=== PATIENT | female | born 1960 | race Caucasian/White ===

== ENCOUNTER 2021-06-21 12:04 | Outpatient (REF) | payer MEDICARE, SELFPAY ==
--- NOTE | ~2021-06-21 | MM_ITS ---
EXAMINATION: MM SCREENING DIGITAL BREAST TOMOSYNTHESIS, BILATERAL CLINICAL INFORMATION: Screening. Asymptomatic. The lifetime risk of breast cancer based on the Tyrer-Cuzick Model is 6%. COMPARISON: Mammography: 04/13/2020, 04/08/2019, 03/13/2018 TECHNIQUE: Digital breast tomosynthesis is performed in both the craniocaudal and mediolateral oblique views along with computer-aided detection (CAD). Synthesized 2D images are generated from the tomosynthesis. FINDINGS: There are scattered areas of fibroglandular density (ACR BI-RADS breast composition Category b). There are no significant masses, abnormal calcifications, or other abnormalities. Parenchymal pattern is similar to prior studies. The left breast is again larger with global asymmetry upper outer quadrant as before. Neither breast shows developing density or interval mass or architectural abnormality. No significant changes. MM/MM tomosynthesis screening BI IMPRESSION: No significant changes from prior studies. ASSESSMENT: BI-RADS 2: Benign RECOMMENDATION: Routine annual mammography screening. This patient's information was entered into a reminder system with a target due date for their next mammogram.
== END 2021-06-21 12:05 | disposition home or self-care (01) ==
LOC: HO.MAMMO 12:04
PROVIDERS: PCP Internal Medicine Medical Oncology; Visit Provider Obstetrics & Gynecology
DX: Z12.31 Encounter for screening mammogram for malignant neoplasm of breast (principal)
CPT/HCPCS: 77063; 77067

== ENCOUNTER 2022-06-24 12:41 | Outpatient (REF) | payer MEDICARE, SELFPAY ==
--- NOTE | ~2022-06-24 | MM_ITS ---
EXAMINATION: MM SCREENING DIGITAL BREAST TOMOSYNTHESIS, BILATERAL CLINICAL INFORMATION: Screening. Asymptomatic. COMPARISON: Mammography: 06/21/2021, 04/13/2020, 04/08/2019, 03/13/2018 TECHNIQUE: Digital breast tomosynthesis is performed in both the craniocaudal and mediolateral oblique views along with computer-aided detection (CAD). Synthesized 2D images are generated from the tomosynthesis. FINDINGS: There are scattered areas of fibroglandular density (ACR BI-RADS breast composition Category b). Parenchymal pattern is similar to prior exams. There is mild asymmetry of the breasts, left slightly larger with regional parenchymal asymmetry upper outer quadrant. There is no developing density or interval mass or architectural abnormality in either breast. There are scattered benign round calcifications. The axilla and skin contours are unremarkable. MM/MM tomosynthesis screening BI IMPRESSION: No mammographic evidence of malignancy. ASSESSMENT: BI-RADS 2: Benign RECOMMENDATION: Routine annual mammography screening. This patient's information was entered into a reminder system with a target due date for their next mammogram.
== END 2022-06-24 12:42 | disposition home or self-care (01) ==
LOC: HO.MAMMO 12:41
PROVIDERS: PCP Internal Medicine; Visit Provider Internal Medicine
DX: Z12.31 Encounter for screening mammogram for malignant neoplasm of breast (principal)
CPT/HCPCS: 77063; 77067

== ENCOUNTER 2022-12-29 07:54 | Outpatient (REF) | payer MEDICARE, SELFPAY ==
--- NOTE | ~2022-12-29 | MM_ITS ---
EXAMINATION: BONE DENSITOMETRY CLINICAL INDICATION: Encounter for screening for osteoporosis. COMPARISON: None (current study represents initial baseline exam). TECHNIQUE: Using a [employer] DXA System (software version: 13.1) manufactured by [employer], dual-energy x-ray absorptiometry was performed of the lumbar spine, left hip, and right forearm radius 33%. The images are of good technical quality. Summary results are attached. FINDINGS: AP SPINE L2-L4 (excluding L1): The data of L1-L4 has been changed to exclude the L1 vertebral body, because vertebral augmentation at this level may cause overestimation of lumbar spine density. BMD 1.136 g/cm2, Z-score 0.9, T-score -0.5, normal. LEFT FEMUR, NECK: BMD 0.860 g/cm2, Z-score 0.1, T-score -1.3, osteopenia. LEFT FEMUR, TOTAL: BMD 0.841 g/cm2, Z-score -0.2, T-score -1.3, osteopenia. RIGHT FOREARM RADIUS 33%: BMD 0.801 g/cm2, Z-score 0.4, T-score -0.9, normal. IDENTIFIED RISK FACTORS: Early menopause, secondary osteoporosis, history of fracture (adult). HISTORY OF FRACTURE: Spine, wrist. MEDICATIONS: Calcium supplements or multivitamin, vitamin D, ERT/SERMS. MM/XR DEXA axial skeleton IMPRESSION: 1. DIAGNOSIS: Osteopenia based on the lowest T-score value of -1.3 in the femoral neck and total femur applying World Health Organization criteria. 2. 10-YEAR FRACTURE RISK PREDICTION, FRAX: Not performed in this patient on estrogen or bone building treatments. 3. Treatment Recommendations: NOF guidelines recommend consideration for treatment in postmenopausal women and men age 50 and older presenting with the following: -A hip or vertebral (clinical or morphometric) fracture. -T-score less than or equal to -2.5 at the femoral neck or spine after appropriate evaluation to exclude secondary causes. -Low bone mass at the hip or spine and a 10-year fracture probability by FRAX of greater than or equal to 3% for hip fracture or greater than or equal to 20% for major osteoporotic fracture based on the [place] adapted WHO algorithm. 4. Other Recommendations: All treatment decisions require clinical judgment and consideration of individual patient factors, including patient preferences, comorbidities, previous drug use, risk factors not captured in the FRAX model (e.g. frailty, falls, vitamin D deficiency, increased bone turnover, interval significant decline in bone density) and possible under or overestimation of fracture risk by FRAX. Additional medical evaluation for secondary cause of low bone mineral density may be appropriate. FUTURE SCAN RECOMMENDATION: People with diagnosed cases of osteoporosis or at high risk for fracture should have regular bone mineral density tests. For patients eligible for Medicare, routine testing is allowed once every 2 years. The testing frequency can be increased to one year for patients who have rapidly progressing disease, those who are receiving or discontinuing medical therapy to restore bone mass, or have additional risk factors.
== END 2022-12-29 07:55 | disposition home or self-care (01) ==
LOC: HO.MAMMO 07:54
PROVIDERS: Visit Provider Obstetrics & Gynecology
DX: Z13.820 Encounter for screening for osteoporosis (principal); S32.050S Wedge compression fracture of fifth lumbar vertebra, sequela; Z78.0 Asymptomatic menopausal state
CPT/HCPCS: 77080

== ENCOUNTER 2023-06-30 12:28 | Outpatient (REF) | payer MEDICARE, SELFPAY ==
--- NOTE | ~2023-06-30 | MM_ITS ---
EXAMINATION: MM SCREENING DIGITAL BREAST TOMOSYNTHESIS, BILATERAL CLINICAL INFORMATION: Screening. Asymptomatic. COMPARISON: Mammography: 06/24/2022, 06/21/2021, 04/13/2020, 04/08/2019, 03/13/2018 TECHNIQUE: Digital breast tomosynthesis is performed in both the craniocaudal and mediolateral oblique views along with computer-aided detection (CAD). Synthesized 2D images are generated from the tomosynthesis. Additional full-field left MLO was provided. FINDINGS: There are scattered areas of fibroglandular density (ACR BI-RADS breast composition Category b). Parenchymal pattern is similar to prior exams. There is mild asymmetry of the breasts, left slightly larger with regional parenchymal asymmetry upper outer quadrant. There is no developing density or interval mass or architectural abnormality in either breast. There are scattered stable benign round calcifications, and mild vascular calcifications. The axilla and skin contours are unremarkable. MM/MM tomosynthesis screening BI IMPRESSION: No mammographic evidence of malignancy. Stable benign findings. ASSESSMENT: BI-RADS BI-RADS 2 - Benign Findings RECOMMENDATION: Routine annual mammography screening. 1 year F/U This examination should not preclude the clinical evaluation of a suspicious palpable abnormality. This patient's information was entered into a reminder system with a target due date for their next mammogram.
== END 2023-06-30 12:29 | disposition home or self-care (01) ==
LOC: HO.MAMMO 12:28
PROVIDERS: Visit Provider Internal Medicine
DX: Z12.31 Encounter for screening mammogram for malignant neoplasm of breast (principal)
CPT/HCPCS: 77063; 77067

== ENCOUNTER → 2023-06-30 13:15 | Outpatient (BNV) | payer MEDICARE, SELFPAY | PROVIDERS: Visit Provider Radiology Diagnostic Radiology | DX: Z12.31 Encounter for screening mammogram for malignant neoplasm of breast (principal) | CPT/HCPCS: 77063; 77067 ==

== ENCOUNTER → 2024-07-03 13:30 | Outpatient (BNV) | payer MEDICARE, SELFPAY | PROVIDERS: Visit Provider Internal Medicine | DX: Z12.31 Encounter for screening mammogram for malignant neoplasm of breast (principal) | CPT/HCPCS: 77063; 77067 ==

== ENCOUNTER 2024-07-03 13:37 | Outpatient (REF) | payer MEDICARE, SELFPAY ==
--- NOTE | ~2024-07-03 | MM_ITS ---
EXAMINATION: MM SCREENING DIGITAL BREAST TOMOSYNTHESIS, BILATERAL CLINICAL INFORMATION: Screening. Asymptomatic. COMPARISON: Mammography: Comparison is made with available priors TECHNIQUE: Digital breast mammography with tomosynthesis is performed in both the craniocaudal and mediolateral oblique views along with computer-aided detection (CAD). FINDINGS: The breasts are heterogeneously dense, which may obscure small masses (ACR BI-RADS breast composition Category c). There are no significant masses, abnormal calcifications, or other abnormalities. MM/MM tomosynthesis screening BI IMPRESSION: No mammographic evidence of malignancy. ASSESSMENT: BI-RADS BI-RADS 1 - Negative RECOMMENDATION: Routine annual mammography screening. 1 year F/U This examination should not preclude the clinical evaluation of a suspicious palpable abnormality. This patient's information was entered into a reminder system with a target due date for their next mammogram. Electronically signed by: Annia Ortiz DO 07/12/2024 08:45 AM LOKESH
== END 2024-07-03 13:38 | disposition home or self-care (01) ==
LOC: HO.MAMMO 13:37
PROVIDERS: Visit Provider Internal Medicine
DX: Z12.31 Encounter for screening mammogram for malignant neoplasm of breast (principal)
CPT/HCPCS: 77063; 77067

== ENCOUNTER 2025-07-10 14:25 | Outpatient (REF) | payer MEDICARE, SELFPAY ==
--- NOTE | ~2025-07-10 | MM_ITS ---
EXAMINATION: MM SCREENING DIGITAL BREAST TOMOSYNTHESIS, BILATERAL CLINICAL INFORMATION: Screening. Asymptomatic. COMPARISON: Mammography: Comparison is made with available priors TECHNIQUE: Digital breast mammography with tomosynthesis is performed in both the craniocaudal and mediolateral oblique views along with computer-aided detection (CAD). FINDINGS: The breasts are heterogeneously dense, which may obscure small masses. There are no significant masses, abnormal calcifications, or other abnormalities. MM/MM tomosynthesis screening BI IMPRESSION: No mammographic evidence of malignancy. ASSESSMENT: BI-RADS Category 1: Negative RECOMMENDATION: Routine annual mammography screening. 1 year F/U This examination should not preclude the clinical evaluation of a suspicious palpable abnormality. This patient's information was entered into a reminder system with a target due date for their next mammogram. Electronically signed by: Annia Ortiz DO 07/14/2025 04:10 PM [facility]
--- OUTSIDE RECORDS SUMMARY | 2025-07-10 19:47 | XMS_ITS | Clinical Summary ---
Author Organization [facility] Address [address] [place] [address] Care Team Providers Care Veterinary Bacteriologist Name Role Phone Kmaran Cox MD Primary Care Provider [phone] Allergies Active Allergy Reactions Criticality Noted Date Comments Codeine Hives Medium 04/13/2018 Oxycodone-Acetaminophen Hives Medium 04/13/2018 Oxycodone-Aspirin Unknown/Patient and Family Unable to Define Medium 04/13/2018 Tetanus Immune Globulin Anaphylaxis High 04/13/2018 Social History Tobacco Use Types Packs/Day Years Used Date Smoking Tobacco: Never Assessed Comments Unknown Sex and Gender Information Value Date Recorded Sex Assigned at Not on file Legal Sex Female 7:28 PM EDT Gender Identity Not on file Sexual Orientation Not on file Last Filed Vital Signs Vital Sign Reading Time Taken Comments Blood Pressure 116/70 04/13/2018 11:18 PM EDT Pulse 66 04/13/2018 11:18 PM EDT Temperature 37 C (98.6 F) 04/13/2018 11:18 PM EDT Respiratory Rate 18 04/13/2018 11:18 PM EDT Oxygen Saturation 97% 04/13/2018 11:18 PM EDT Inhaled Oxygen Concentration - - Weight - - Height - - Body Mass Index - - Plan of Treatment Health Maintenance Due Date Last Done Comments Advance Care Planning 1960 Hepatitis C Virus Screening 1960 DTaP/Tdap/Td Vaccines (1 - Tdap) 1977 Mammogram 1998 Colonoscopy 2003 Pneumococcal Vaccines 50+ (1 of 1 - PCV) 2008 Zoster (Shingles) Vaccine (1 of 2) 2008 DXA Bone Density (Females,Ag es 65 and older) 2023 Influenza Vaccine 03/21/2025 COVID-19 Vaccine ( - 2023-2 5 season) 2025 RSV Vaccine 50 years and old er and Patients (1 - 1-dose 75+ series) 2033 Hepatitis B Vaccines Aged Out No long er eligible based on patient's age to complete this topic Insurance MEDICARE PART A & B [place] [id number] Care Teams Veterinary Bacteriologist Relationship Specialty Start Date End Date Kamran Cox MD [address] [place] [address] [place] [id number] PCP - General 04/13/18
--- OUTSIDE RECORDS SUMMARY | 2025-07-10 19:47 | XMS_ITS | Encounter Summary ---
Author Organization [facility] Address [address] [place] [address] Care Team Providers Care Warranty Manager Name Role Phone Ruchi Zapata Primary Care Provider [phone] Encounter Details Date Type Department Care Team (Late st Contact Info) Description 03/06/2025 Lab Requisition [facility] - Main Lab [address] [place] [address] Ruchi Zapata PA [address] [place] [address] Encounter for other general examination Social History Tobacco Use Types Packs/Day Years Used Date Smoking Tobacco: Never Smokeless Tobacco: Never Comments Unknown Sex and Gender Information Value Date Recorded Sex Assigned at Not on file Legal Sex Female 2:01 AM EST Gender Identity Not on file Sexual Orientation Not on file documented as of this encounter Plan of Treatment Not on file documented as of this encounter Procedures Procedure Name Priority Date/Time Associated Diagnosis Comments COMPLETE BLOOD COUNT Routine 03/06/2025 5:25 AM EDT Encounter for other general examination COMPREHENSIVE METABOLIC PANEL Routine 03/06/2025 5:25 AM EDT Encounter for other general examination documented in this encounter Results * Complete blood count (03/06/2025 5:25 AM EDT) WBC 6.1 4.8 - 10.8 K/[facility] LAB HEMETOLOGY METHOD 03/06/2025 10:35 AM EDT [facility] RBC 4.10 3.80 - 4.80 M/[facility] LAB HEMETOLOGY METHOD 03/06/2025 10:35 AM EDT [facility] Hemoglobin 12.7 11.5 - 16.0 g/dL LAB HEMETOLOGY METHOD 03/06/2025 10:35 AM EDT [facility] Hematocrit 39.2 35.0 - 47.0 % LAB HEMETOLOGY METHOD 03/06/2025 10:35 AM EDT [facility] MCV 95.6 79.0 - 98.0 FL LAB HEMETOLOGY METHOD 03/06/2025 10:35 AM EDT [facility] MCH 31.0 27.0 - 32.0 pcg LAB HEMETOLOGY METHOD 03/06/2025 10:35 AM EDT [facility] MCHC 32.4 32.0 - 37.0 g/dL LAB HEMETOLOGY METHOD 03/06/2025 10:35 AM EDT [facility] RDW 14.2 11.0 - 15.0 % LAB HEMETOLOGY METHOD 03/06/2025 10:35 AM EDT [facility] Platelets 377 130 - 400 K/mcL LAB HEMETOLOGY METHOD 03/06/2025 10:35 AM EDT [facility] MPV 8.9 7.0 - 11.0 FL LAB HEMETOLOGY METHOD 03/06/2025 10:35 AM EDT [facility] NRBC 0.0 <1.0 % LAB HEMETOLOGY METHOD 03/06/2025 10:35 AM EDT [facility] NRBC Absolute 0.00 <0.10 K/mcL LAB HEMETOLOGY METHOD 03/06/2025 10:35 AM EDT [facility] Blood Venous blood specimen / Unknown Venipuncture / Unknown 03/06/2025 5:25 AM EDT 03/06/2025 9:06 AM EDT us Ruchi SALINAS LAB BLOOD ORDERABLES Final Re sult [facility] [address] [place] [address], * (ABNORMAL) Comprehensive metabolic panel (03/06/2025 5:25 AM EDT) Sodium 142 133 - 145 mmol/L LAB CHEMISTRY METHOD 03/06/2025 11:10 AM [facility] Potassium 4.1 3.5 - 5.5 mmol/L LAB CHEMISTRY METHOD 03/06/2025 11:10 AM T [facility] Chloride 106 96 - 110 mmol/L LAB CHEMISTRY METHOD 03/06/2025 11:10 AM [facility] CO2 31 21 - 32 mmol/L LAB CHEMISTRY METHOD 03/06/2025 11:10 AM [facility] Anion Gap 5 3 - 11 LAB CHEMISTRY METHOD 03/06/2025 11:10 AM [facility] Glucose 53(L) 70 - 100 mg/dL LAB CHEMISTRY METHOD 03/06/2025 11:10 AM [facility] BUN 9 5 - 25 mg/dL LAB CHEMISTRY METHOD 03/06/2025 11:10 AM [facility] Creatinine 0.48(L) 0.50 - 1.10 mg/dL LAB CHEMISTRY METHOD 03/06/2025 11:10 AM [facility] eGFR 105 >=60 mL/min/1. 73m2 LAB CHEMISTRY METHOD 03/06/2025 11:10 AM [facility] Comment:Calculation based on the Chronic Kidney Disease Epidemiology Collaboration (CKD-EPI) equation refit without adjustment for race. BUN/Creatinine Ratio 18.8 LAB CHEMISTRY METHOD 03/06/2025 11:10 AM [facility] Calcium 9.0 8.5 - 10.5 mg/dL LAB CHEMISTRY METHOD 03/06/2025 11:10 AM [facility] AST (SGOT) 19 10 - 42 unit/L LAB CHEMISTRY METHOD 03/06/2025 11:10 AM T [facility] ALT (SGPT) 30 10 - 60 unit/L LAB CHEMISTRY METHOD 03/06/2025 11:10 AM [facility] Alkaline Phosphatase 147(H) 42 - 121 unit/L LAB CHEMISTRY METHOD 03/06/2025 11:10 AM T [facility] Total Protein 5.6(L) 6.0 - 8.0 g/dL LAB CHEMISTRY METHOD 03/06/2025 11:10 AM EDT [facility] Albumin 3.1(L) 3.2 - 5.0 g/dL LAB CHEMISTRY METHOD 03/06/2025 11:10 AM [facility] Total Bilirubin 0.3 0.0 - 1.4 mg/dL LAB CHEMISTRY METHOD 03/06/2025 11:10 AM [facility] Blood Venous blood specimen / Unknown Venipuncture / Unknown 03/06/2025 5:25 AM EDT 03/06/2025 9:06 AM EDT us Ruchi SALINAS LAB BLOOD ORDERABLES Final Re sult [facility] [address] [place] [address], documented in this encounter Visit Diagnoses Diagnosis Encounter for other general examination documented in this encounter Care Teams Warranty Manager Relationship Specialty Start Date End Date Ruchi Zapata PA [address] [place] [id number] PCP - General Physician Cut Off Sawyer Log 03/03/25 documented as of this encounter
--- OUTSIDE RECORDS SUMMARY | 2025-07-10 19:47 | XMS_ITS | Clinical Summary ---
Author Organization [facility] Address [address] [place] [address] Care Team Providers Care Landfill Gas Collection Operator Name Role Phone Unavailable Primary Care Provider Unavailabl e Social History Tobacco Use Types Packs/Day Years Used Date Smoking Tobacco: Never Assessed Comments Unknown Sex and Gender Information Value Date Recorded Sex Assigned at Not on file Legal Sex Female 11:22 PM EDT Gender Identity Not on file Sexual Orientation Not on file Plan of Treatment Health Maintenance Due Date Last Done Comments Hepatitis C Screening 1960 DTaP/Tdap/Td (1 - Tdap) 1976 Mammogram/Breast Imaging 1998 Pneumococcal 50+ years (1 of 1 - PCV) 2008 Zoster (Shingrix) (1 of 2) 2008 Bone Density 2023 COVID-19 Vaccine ( - 2024-2 6 season) 2025 Influenza (#1) 2025 RSV (1 - 1-dose 75+ series) 2033 HPV Vaccine (No Doses Required) Completed Hep A Aged Out No longer eligi ble based on patient's age to complete this topic Hep B Aged Out No longer eligi ble based on patient's age to complete this topic Hib Aged Out No longer eligi ble based on patient's age to complete this topic Meningococcal ACWY Aged Out No longer eligible based on patient's age to complete this topic Pap Smear Discontinued Zoster (Zostavax) Discontinued
--- OUTSIDE RECORDS SUMMARY | 2025-07-10 19:47 | XMS_ITS | Clinical Summary ---
Author Organization [address] Address [address] [place] [address] Phone Care Team Providers Care Loss Prevention Auditor Name Role Phone Ruchi Zapata Primary Care Provider [phone] Social History Tobacco Use Types Packs/Day Years Used Date Smoking Tobacco: Never Smokeless Tobacco: Never Comments Unknown Sex and Gender Information Value Date Recorded Sex Assigned at Not on file Legal Sex Female 2:01 AM EST Gender Identity Not on file Sexual Orientation Not on file Obstetrics History Plan of Treatment Health Maintenance Due Date Last Done Comments Breast Cancer Screening 1960 Colorectal Cancer Screening: Colonoscopy 1958 DTaP,Tdap,and Td Vaccines (1 - Tdap) 1977 Pneumococcal Vaccine: 50+ Ye ars (1 of 1 - PCV) 2008 Zoster Vaccines (1 of 2) 2008 Hepatitis C Screening 07/24/2022 Medicare Annual Wellness Visit 07/24/2022 Osteoporosis Screening (Bone Density Screening) 07/24/2022 Social Influencers of Health Screening 07/24/2022 Falls Risk Assessment 2023 Depression Screening 08/21/2024 COVID-19 Vaccine (1 - 2024-2 6 season) 2025 Influenza Vaccine (#1) 2025 RSV Immunization Adult Patie nts (1 - 1-dose 75+ series) 2033 HIB Vaccines Aged Out No longer eligi ble based on patient's age to complete this topic HPV Vaccines Aged Out No longer eligi ble based on patient's age to complete this topic Hepatitis A Vaccines Aged Out No long er eligible based on patient's age to complete this topic Hepatitis B Vaccines Aged Out No long er eligible based on patient's age to complete this topic IPV Vaccines Aged Out No longer eligi ble based on patient's age to complete this topic MMR Vaccines Aged Out No longer eligi ble based on patient's age to complete this topic Meningococcal ACWY Vaccine Aged Out N o longer eligible based on patient's age to complete this topic Meningococcal B Vaccine Aged Out No l onger eligible based on patient's age to complete this topic RSV Immunization Patients Un aislinn 20 months Aged Out No longer eligible b ased on patient's age to complete this topic Varicella Vaccines Aged Out No longer eligible based on patient's age to complete this topic Insurance BLUE [place] - [place] MEDICARE ADVANTAGE Care Teams Loss Prevention Auditor Relationship Specialty Start Date End Date Ruchi Zapata PA [address] [place] [phone] PCP - General Physician Drier Belt Conveyor 03/03/25
--- OUTSIDE RECORDS SUMMARY | 2025-07-10 19:47 | XMS_ITS | Clinical Summary ---
Author Organization [facility] Address [address] [place] [address] Phone Care Team Providers Care Director Operations Broadcast Name Role Phone Kamran Cox MD Primary Care Provider Medications HYDROcodone-ade taminophen (NORCO) 7.5-325 mg per tablet Take 1 tablet by mouth every 8 (eight) hours as needed for pain (specific location in comments). 03/10/2025 Active acetaminophen (TYLENOL) 325 mg tablet Take 650 mg by mouth every 6 (six) hours as needed for pain (specific location in comments). 03/11/2025 Active ascorbic acid, vitamin C, (VITAMIN C) 500 MG tablet Take 500 mg by mouth daily. 03/11/2025 Active calcium carbonate-vit D3-min 600 mg-10 mcg (400 unit) Tab Take 1 tablet by mouth 2 (two) times a day. 03/11/2025 Active docusate sodium (COLACE) 100 MG capsule Take 100 mg by mouth 2 (two) times a day. 03/11/2025 Active ferrous sulfate 325 mg (65 mg point lay ira iron) tablet Take 325 mg by mouth daily with breakfast. 03/11/2025 Active gabapentin (NEURONTIN) 100 MG capsule Take 100 mg by mouth 3 (three) times a day. 03/11/2025 Active melatonin 3 mg Tab Take 3 mg by mouth daily. at bedtime for sleep 03/11/2025 Active Encounters Date Type Department Care Team Description 05/09/2025 10:30 AM EDT Home Care Visit [facility] [address] [place] [phone] Emmie Boateng, PT PT OASIS DISCHARGE VISIT 05/05/2025 9:00 AM EDT Home Care Visit [facility] [address] [place] [phone] Erika Bauer, DELIVERY TECH DELIVERY TECH HOME VISIT 04/30/2025 9:00 AM EDT Home Care Visit [facility] [address] [place] [phone] Erika Bauer, DELIVERY TECH DELIVERY TECH HOME VISIT 04/28/2025 9:00 AM EDT Home Care Visit [facility] [address] [place] [address] Erika Bauer, DELIVERY TECH DELIVERY TECH HOME VISIT 04/23/2025 9:00 AM EDT Home Care Visit [facility] [address] [place] [phone] Erika Bauer, DELIVERY TECH DELIVERY TECH HOME VISIT 04/17/2025 9:00 AM EDT Home Care Visit [facility] [address] [place] [address] Erika Bauer, DELIVERY TECH DELIVERY TECH HOME VISIT 04/15/2025 8:00 AM EDT Home Care Visit [facility] [address] [place] [phone] Erika Bauer, DELIVERY TECH DELIVERY TECH HOME VISIT 04/10/2025 11:30 AM EDT Home Care Visit [facility] [address] [place] [address] Emmie Boateng, PT PT TFA VISIT from Last 3 Months Social History Tobacco Use Types Packs/Day Years Used Date Smoking Tobacco: Never Assessed Home Health Assessment: Transportation Answer Date Recorded Lack of Transportation (Medical) No 05/09/2025 Lack of Transportation (Non-Medical) No 05/09/2025 Patient Unable or Declines to Respond No 05/09/2025 Education Answer Date Recorded Are you interested in more education? Not on lenora e 12/16/2022 Are you concerned about learning? Not on file 12/16/2022 No 12/16/2022 No 12/16/2022 Digital Access Answer Date Recorded No 01/14/2023 No 01/14/2023 No 01/14/2023 Reliable internet access at home? Not on file 01/14/2023 Device with a working camera? Not on file Comments Unknown Sex and Gender Information Value Date Recorded Sex Assigned at Not on file Legal Sex Female 6:57 PM EDT Gender Identity Not on file Sexual Orientation Not on file Last Filed Vital Signs Vital Sign Reading Time Taken Comments Blood Pressure 142/82 05/09/2025 10:43 AM EDT Pulse 80 05/09/2025 10:43 AM EDT Temperature 36.7 C (98 F) 05/09/2025 10:43 AM EDT Respiratory Rate 20 03/28/2025 9:13 AM EDT Oxygen Saturation 98% 05/09/2025 10:43 AM EDT Inhaled Oxygen Concentration - - Weight 67.6 kg (149 lb) 03/10/2025 9:05 AM EDT Height 157.5 cm (5' 2 ) 03/10/2025 9:05 AM EDT Body Mass Index 27.25 03/10/2025 9:05 AM EDT Plan of Treatment Health Maintenance Due Date Last Done Comments Adult Td,Tdap Booster 1960 LIPID PANEL 1958 DEPRESSION SCREENING 1970 SMOKING Hx and SMOKELESS TOB ACCO SCREENING 1971 HEPATITIS C SCREENING 1976 SCREENING FOR DIABETES 1993 MAMMOGRAM 1998 COLOGUARD 2003 COLONOSCOPY 2003 COLORECTAL CANCER SCREENING 2003 FIT TEST 2003 FOBT 2003 SIGMOIDOSCOPY 2003 VIRTUAL COLONOSCOPY 2003 PNEUMOCOCCAL VACCINES (50+ y ears) (1 of 1 - PCV) 2008 ZOSTER VACCINES (1 of 2) 2008 OSTEOPOROSIS SCREENING INITI AL (ONE-TIME) 2023 INFLUENZA VACCINE (#1) 2025 08/15/2021 COVID-19 VACCINE (2 - 2024-2 6 season) 2025 08/15/2021 RSV VACCINE (1 - 1-dose 75+ series) 2033 HEPATITIS A VACCINES Aged Out No long er eligible based on patient's age to complete this topic HIB VACCINES Aged Out No longer eligi ble based on patient's age to complete this topic MENINGOCOCCAL VACCINES (ACWY) Aged Out No longer eligible based on patient's age to complete this topic MENINGOCOCCAL VACCINES (B) Aged Out N o longer eligible based on patient's age to complete this topic Medical Devices Not on file Insurance MEDICARE PART A & B [employer] SUPPLEMENT Member Subscriber Plan / Payer ( fective 1995-Present) Name:Kevin Hartmann Relation to Subscriber:Not on file Name:BRENDAKEVIN Date of :1960 (Home) Address: [facility] [place] [address] Payer ID:[id number] (NAIC) [facility] Address: [address] MEDICARE PPO BLUE REPLACEMENT Member Subscriber Plan / Payer (Ef fective 1995-Present) Name:Kevin Hartmann Relation to Subscriber:Self Name:Kevin Hartmann Payer ID:[id number] (NAIC) Type:Medicare Address: [address] [place] [id number] [employer] MED[employer] SUPPLE[place] BLUE RE[place]AC[place] [employer] MEDEX SUPPLEMENT MEDICARE PART A & B [employer] MEDEX SUPPLEMENT MEDICARE PART A & B [employer] MEDEX SUPPLE[place] MEDICARE PART A & B [employer] MEDEX SUPPLEMENT MEDICARE PART A & B [employer] SUPP[place] BL[place] RE[place] [facility] [address] [place], [place] MEDICARE PART A & [place] [id number] BLUE [place]OSS MEDEX SUPPLE[place] BL[place] MEDICARE PART A & B [facility] MEDEX SUPPLEMENT [place] BLUE REPLACEMENT Care Teams Director Operations Broadcast Relationship Specialty Start Date End Date Kamran Cox MD [address] [place] [address] PCP - General Internal Medicine 03/07/25 Additional Source Comments The information contained in this document represents components of the legal health record. It is not the complete legal health record.[facility]
--- OUTSIDE RECORDS SUMMARY | 2025-07-10 19:47 | XMS_ITS | Encounter Summary ---
Author Organization [facility] Address [address] [place] [address] Care Team Providers Care Lithographic Artist Name Role Phone Ruchi Zapata Primary Care Provider [phone] Encounter Details Date Type Department Care Team (Late st Contact Info) Description 03/03/[address] [facility] - Main Lab [address] [place] [address] Ruchi Zapata PA [address] [place] [address] Encounter for other general examination [...] Associated Diagnosis Comments COMPLETE BLOOD COUNT Routine 03/03/2025 4:46 AM EDT Encounter for other general examination COMPREHENSIVE METABOLIC PANEL Routine 03/03/2025 4:46 AM EDT Encounter for other general examination documented in this encounter Results * (ABNORMAL) Complete blood count (03/03/2025 4:46 AM EDT) WBC 6.5 4.8 - 10.8 K/[facility] LAB HEMETOLOGY METHOD 03/03/2025 11:59 AM EDT [facility] RBC 4.00 3.80 - 4.80 M/[facility] LAB [facility] Hemoglobin 11.9 11.5 - 16.0 g/dL LAB HEMETOLOGY METHOD 03/03/2025 11:59 AM [facility] LAB Hematocrit 37.8 35.0 - 47.0 % LAB HEMETOLOGY METHOD 03/03/2025 11:59 AM [facility] LAB MCV 95.0 79.0 - 98.0 FL LAB HEMETOLOGY METHOD 03/03/2025 11:59 AM [facility] LAB MCH 29.9 27.0 - 32.0 pcg LAB HEMETOLOGY METHOD 03/03/2025 11:59 AM [facility] LAB MCHC 31.5(L) 32.0 - 37.0 g/dL LAB HEMETOLOGY METHOD 03/03/2025 11:59 AM [facility] LAB RDW 13.9 11.0 - 15.0 % LAB HEMETOLOGY METHOD 03/03/2025 11:59 AM [facility] LAB Platelets 402(H) 130 - 400 K/mcL LAB HEMETOLOGY METHOD 03/03/2025 11:59 AM [facility] LAB MPV 8.7 7.0 - 11.0 FL LAB HEMETOLOGY METHOD 03/03/2025 11:59 AM [facility] LAB NRBC 0.0 <1.0 % LAB HEMETOLOGY METHOD 03/03/2025 11:59 AM [facility] LAB NRBC Absolute 0.00 <0.10 K/mcL LAB HEMETOLOGY METHOD 03/03/2025 11:59 AM [facility] LAB Blood Venous blood specimen / Unknown Venipuncture / Unknown 03/03/2025 4:46 AM EDT 03/03/2025 9:49 AM EDT Ruchi SALINAS LAB BLOOD ORDERABLES Final Re sult [facility] [address] [place] [address], * (ABNORMAL) Comprehensive metabolic panel (03/03/2025 4:46 AM EDT) Sodium 145 133 - 145 mmol/L LAB CHEMISTRY METHOD 03/03/2025 5:01 PM [facility] LAB Potassium 3.9 3.5 - 5.5 mmol/L LAB CHEMISTRY METHOD 03/03/2025 5:01 PM [facility] LAB Chloride 108 96 - 110 mmol/L LAB CHEMISTRY METHOD 03/03/2025 5:01 PM [facility] LAB CO2 32 21 - 32 mmol/L LAB CHEMISTRY METHOD 03/03/2025 5:01 PM [facility] LAB Anion Gap 5 3 - 11 LAB CHEMISTRY METHOD 03/03/2025 5:01 PM [facility] LAB Glucose 55(L) 70 - 100 mg/dL LAB CHEMISTRY METHOD 03/03/2025 5:01 PM [facility] BUN 9 5 - 25 mg/dL LAB CHEMISTRY METHOD 03/03/2025 5:01 PM [facility] LAB Creatinine 0.53 0.50 - 1.10 mg/dL LAB CHEMISTRY METHOD 03/03/2025 5:01 PM [facility] LAB eGFR 102 >=60 mL/min/1. 73m2 LAB CHEMISTRY METHOD 03/03/2025 5:01 PM [facility] LAB Comment:Calculation based on the Chronic Kidney Disease Epidemiology Collaboration (CKD-EPI) equation refit without adjustment for race. BUN/Creatinine Ratio 17.0 LAB CHEMISTRY METHOD 03/03/2025 5:01 PM [facility] LAB Calcium 9.1 8.5 - 10.5 mg/dL LAB CHEMISTRY METHOD 03/03/2025 5:01 PM [facility] AST (SGOT) 25 10 - 42 unit/L LAB CHEMISTRY METHOD 03/03/2025 5:01 PM [facility] LAB ALT (SGPT) 26 10 - 60 unit/L LAB CHEMISTRY METHOD 03/03/2025 5:01 PM [facility] LAB Alkaline Phosphatase 127(H) 42 - 121 unit/L LAB CHEMISTRY METHOD 03/03/2025 5:01 PM [facility] Total Protein 5.4(L) 6.0 - 8.0 g/dL LAB CHEMISTRY METHOD 03/03/2025 5:01 PM [facility] Albumin 3.0(L) 3.2 - 5.0 g/dL LAB CHEMISTRY METHOD 03/03/2025 5:01 PM [facility] Total Bilirubin 0.4 0.0 - 1.4 mg/dL LAB CHEMISTRY METHOD 03/03/2025 5:01 PM [facility] LAB Blood Venous blood specimen / Unknown Venipuncture / Unknown 03/03/2025 4:46 AM EDT 03/03/2025 9:49 AM EDT us Ruchi SALINAS LAB BLOOD ORDERABLES Final Re sult [facility] [address] [place] [address], documented in this encounter Visit Diagnoses Diagnosis Encounter for other general examination documented in this encounter Care Teams Lithographic Artist Relationship Specialty Start Date End Date Ruchi Zapata PA [address] [place] [address] PCP - General Physician Grinder Machine Knife Setter 03/03/25 documented as of this encounter
--- OUTSIDE RECORDS SUMMARY | 2025-07-10 19:47 | XMS_ITS | Encounter Summary ---
Author Organization [facility] Address [address] [place] [address] Care Team Providers Care Limousine And Hearse Upholsterer Name Role Phone Ruchi Zapata Primary Care Provider [phone] Encounter Details Date Type Department Care Team (Late st Contact Info) Description 02/21/[address] [facility] - Main Lab [address] [facility] [place] [address] Nola James PA [address] [place] [address] Encounter for other general examination Social History [...] Procedure Name Priority Date/Time Associated Diagnosis Comments CBC WITH AUTO DIFFERENTIAL Routine 02/21/2025 7:08 AM EDT Encounter for other general examination CBC AND DIFFERENTIAL Routine 02/21/2025 7:08 AM EDT Encounter for other general examination MAGNESIUM Routine 02/21/2025 7:08 AM EDT Encounter for other general examination BASIC METABOLIC PANEL Routine 02/21/2025 7:08 AM EDT Encounter for other general examination documented in this encounter Results * (ABNORMAL) CBC auto differential (02/21/2025 7:08 AM EDT) WBC 7.8 4.8 - 10.8 K/mcL LAB HEMETOLOGY METHOD 02/21/2025 10:28 AM [facility] LAB RBC 4.30 3.80 - 4.80 M/mcL LAB HEMETOLOGY METHOD 02/21/2025 10:28 AM [facility] LAB Hemoglobin 12.7 11.5 - 16.0 g/dL LAB HEMETOLOGY METHOD 02/21/2025 10:28 AM [facility] LAB Hematocrit 39.1 35.0 - 47.0 % LAB HEMETOLOGY METHOD 02/21/2025 10:28 AM [facility] LAB MCV 92.0 79.0 - 98.0 FL LAB HEMETOLOGY METHOD 02/21/2025 10:28 AM [facility] LAB MCH 29.9 27.0 - 32.0 pcg LAB HEMETOLOGY METHOD 02/21/2025 10:28 AM [facility] LAB MCHC 32.5 32.0 - 37.0 g/dL LAB HEMETOLOGY METHOD 02/21/2025 10:28 AM [facility] LAB RDW 13.3 11.0 - 15.0 % LAB HEMETOLOGY METHOD 02/21/2025 10:28 AM [facility] LAB Platelets 246 130 - 400 K/mcL LAB HEMETOLOGY METHOD 02/21/2025 10:28 AM [facility] LAB MPV 9.2 7.0 - 11.0 FL LAB HEMETOLOGY METHOD 02/21/2025 10:28 AM [facility] LAB NRBC 0.0 <1.0 % LAB HEMETOLOGY METHOD 02/21/2025 10:28 AM [facility] LAB NRBC Absolute 0.00 <0.10 K/mcL LAB HEMETOLOGY METHOD 02/21/2025 10:28 AM [facility] Neutrophils Relative 57.4 % LAB HEMETOLOGY METHOD 02/21/2025 10:28 AM [facility] Lymphocytes Relative 30.6 % LAB HEMETOLOGY METHOD 02/21/2025 10:28 AM [facility] Monocytes Relative 7.9 % LAB HEMETOLOGY METHOD 02/21/2025 10:28 AM [facility] Eosinophils Relative 2.7 % LAB HEMETOLOGY METHOD 02/21/2025 10:28 AM [facility] Basophils Relative 0.5 % LAB HEMETOLOGY METHOD 02/21/2025 10:28 AM [facility] Immature Granulocytes Relative 0.9 % LAB HEMETOLOGY METHOD 02/21/2025 10:28 AM [facility] LAB Neutrophils Absolute 4.45 1.50 - 7.00 K/mcL LAB HEMETOLOGY METHOD 02/21/2025 10:28 AM [facility] LAB Lymphocytes Absolute 2.37 1.00 - 5.00 K/mcL LAB HEMETOLOGY METHOD 02/21/2025 10:28 AM [facility] LAB Monocytes Absolute 0.61 0.20 - 1.00 K/mcL LAB HEMETOLOGY METHOD 02/21/2025 10:28 AM [facility] LAB Eosinophils Absolute 0.21 0.00 - 0.50 K/mcL LAB HEMETOLOGY METHOD 02/21/2025 10:28 AM [facility] LAB Basophils Absolute 0.04 0.00 - 0.20 K/mcL LAB HEMETOLOGY METHOD 02/21/2025 10:28 AM [facility] LAB Immature Granulocytes Absolute 0.07(H) 0.00 - 0.03 K/mcL LAB HEMETOLOGY METHOD 02/21/2025 10:28 AM [facility] LAB Blood Venous blood specimen / Unknown Venipuncture / Unknown 02/21/2025 7:08 AM EDT 02/21/2025 9:47 AM EDT us Nola SALINAS LAB BLOOD ORDERABLES Final Re sult [facility] [address] [place] [address], [place] [phone] * Magnesium (02/21/2025 7:08 AM EDT) [facility] Magnesium 2.1 1.9 - 2.6 mg/dL LAB CHEMISTRY METHOD 02/21/2025 11:22 AM EDT [facility] Blood Venous blood specimen / Unknown Venipuncture / Unknown 02/21/2025 7:08 AM EDT 02/21/2025 9:47 AM EDT us Nola SALINAS LAB BLOOD ORDERABLES Final Re sult Performing Organization Address City/[facility]/ZIP Co de Phone Number [facility] [address] [place] [address], [place] [phone] * (ABNORMAL) Basic metabolic panel (02/21/2025 7:08 AM EDT) [facility] Sodium 140 133 - 145 mmol/L LAB CHEMISTRY METHOD 02/21/2025 11:22 AM T [facility] Potassium 4.0 3.5 - 5.5 mmol/L LAB CHEMISTRY METHOD 02/21/2025 11:22 AM T [facility] Chloride 103 96 - 110 mmol/L LAB CHEMISTRY METHOD 02/21[facility]2025 [facility] CO2 31 21 - 32 mmol/L LAB CHEMISTRY METHOD 02/21/2025 11:22 AM T [facility] Anion Gap 6 3 - 11 LAB CHEMISTRY METHOD 02/21[facility]2025 [facility] Glucose 95 70 - 100 mg/dL LAB CHEMISTRY METHOD 02/21/2025 11:22 AM EDT [facility] BUN 12 5 - 25 mg/dL LAB CHEMISTRY METHOD 02/21/2025 11:22 AM EDT [facility] Creatinine 0.44(L) 0.50 - 1.10 mg/dL LAB CHEMISTRY METHOD 02/21/2025 11:22 AM T [facility] eGFR 107 >=60 mL/min/1. 73m2 LAB CHEMISTRY METHOD 02/21/2025 11:22 AM T [facility] Comment:Calculation based on the Chronic Kidney Disease Epidemiology Collaboration (CKD-EPI) equation refit without adjustment for race. BUN/Creatinine Ratio 27.3 LAB CHEMISTRY METHOD 02/21/2025 11:22 AM [facility] Calcium 8.5 8.5 - 10.5 mg/dL LAB CHEMISTRY METHOD 02/21/2025 11:22 AM [facility] Blood Venous blood specimen / Unknown Venipuncture / Unknown 02/21/2025 7:08 AM EDT 02/21/2025 9:47 AM EDT Nola SALINAS LAB BLOOD ORDERABLES Final Re sult [facility] [address] [place] [address], documented in this encounter Visit Diagnoses Diagnosis Encounter for other general examination documented in this encounter Care Teams Limousine And Hearse Upholsterer Relationship Specialty Start Date End Date Ruchi Zapata PA [address] [place] [phone] PCP - General Physician Software Applications Developer 03/03/25 documented as of this encounter
--- OUTSIDE RECORDS SUMMARY | 2025-07-10 19:47 | XMS_ITS | Encounter Summary ---
Author Organization [facility] Address [address] [place] [address] Care Team Providers Care Training Analyst Name Role Phone Ruchi Zapata Primary Care Provider [phone] Encounter Details Date Type Department Care Team (Late st Contact Info) Description 02/26/2025 Lab Requisition [facility] - Main Lab [address] [place] [address] Ruchi Zapata PA [address] [place] [address] Encounter for other general examination [...] Diagnosis Comments CBC WITH AUTO DIFFERENTIAL Routine 02/26/2025 6:30 AM EDT Encounter for other general examination CBC AND DIFFERENTIAL Routine 02/26/2025 6:30 AM EDT Encounter for other general examination COMPREHENSIVE METABOLIC PANEL Routine 02/26/2025 6:30 AM EDT Encounter for other general examination documented in this encounter Results * (ABNORMAL) CBC auto differential (02/26/2025 6:30 AM EDT) [facility] Signature WBC 8.2 4.8 - 10.8 K/[facility] LAB HEMETOLOGY METHOD 02/26/2025 10:19 AM EDT [facility] RBC 4.40 3.80 - 4.80 M/mcL LAB HEMETOLOGY METHOD 02/26/2025 10:19 AM [facility] LAB Hemoglobin 13.1 11.5 - 16.0 g/dL LAB HEMETOLOGY METHOD 02/26/2025 10:19 AM [facility] LAB Hematocrit 40.9 35.0 - 47.0 % LAB HEMETOLOGY METHOD 02/26/2025 10:19 AM [facility] LAB MCV 93.2 79.0 - 98.0 FL LAB HEMETOLOGY METHOD 02/26/2025 10:19 AM [facility] LAB MCH 29.8 27.0 - 32.0 pcg LAB HEMETOLOGY METHOD 02/26/2025 10:19 AM [facility] LAB MCHC 32.0 32.0 - 37.0 g/dL LAB HEMETOLOGY METHOD 02/26/2025 10:19 AM [facility] LAB RDW 13.4 11.0 - 15.0 % LAB HEMETOLOGY METHOD 02/26/2025 10:19 AM [facility] LAB Platelets 402(H) 130 - 400 K/mcL LAB HEMETOLOGY METHOD 02/26/2025 10:19 AM [facility] LAB MPV 8.8 7.0 - 11.0 FL LAB HEMETOLOGY METHOD 02/26/2025 10:19 AM [facility] LAB NRBC 0.0 <1.0 % LAB HEMETOLOGY METHOD 02/26/2025 10:19 AM [facility] LAB NRBC Absolute 0.00 <0.10 K/mcL LAB HEMETOLOGY METHOD 02/26/2025 10:19 AM [facility] LAB Neutrophils Relative 55.2 % LAB HEMETOLOGY METHOD 02/26/2025 10:19 AM [facility] LAB Lymphocytes Relative 32.6 % LAB HEMETOLOGY METHOD 02/26/2025 10:19 AM [facility] Monocytes Relative 8.4 % LAB HEMETOLOGY METHOD 02/26/2025 10:19 AM [facility] Eosinophils Relative 1.8 % LAB HEMETOLOGY METHOD 02/26/2025 10:19 AM [facility] Basophils Relative 0.5 % LAB HEMETOLOGY METHOD 02/26/2025 10:19 AM [facility] Immature Granulocytes Relative 1.5 % LAB HEMETOLOGY METHOD 02/26/2025 10:19 AM [facility] Neutrophils Absolute 4.55 1.50 - 7.00 K/mcL LAB HEMETOLOGY METHOD 02/26/2025 10:19 AM [facility] Lymphocytes Absolute 2.69 1.00 - 5.00 K/mcL LAB HEMETOLOGY METHOD 02/26/2025 10:19 AM [facility] Monocytes Absolute 0.69 0.20 - 1.00 K/mcL LAB HEMETOLOGY METHOD 02/26/2025 10:19 AM [facility] Eosinophils Absolute 0.15 0.00 - 0.50 K/mcL LAB HEMETOLOGY METHOD 02/26/2025 10:19 AM [facility] Basophils Absolute 0.04 0.00 - 0.20 K/mcL LAB HEMETOLOGY METHOD 02/26/2025 10:19 AM [facility] Immature Granulocytes Absolute 0.12(H) 0.00 - 0.03 K/mcL LAB HEMETOLOGY METHOD 02/26/2025 10:19 AM [facility] Blood Venous blood specimen / Unknown Venipuncture / Unknown 02/26/2025 6:30 AM EDT 02/26/2025 9:21 AM EDT us Ruchi SALINAS LAB BLOOD ORDERABLES Final Re sult [facility] [address] [place] [address], * (ABNORMAL) Comprehensive metabolic panel (02/26/2025 6:30 AM EDT) Sodium 139 133 - 145 mmol/L LAB CHEMISTRY METHOD 02/26/2025 10:41 AM [facility] Potassium 4.3 3.5 - 5.5 mmol/L LAB CHEMISTRY METHOD 02/26/2025 10:41 AM [facility] Chloride 101 96 - 110 mmol/L LAB CHEMISTRY METHOD 02/26/2025 10:41 AM [facility] CO2 33(H) 21 - 32 mmol/L LAB CHEMISTRY METHOD 02/26/2025 10:41 AM [facility] Anion Gap 5 3 - 11 LAB CHEMISTRY METHOD 02/26/2025 10:41 AM [facility] Glucose 83 70 - 100 mg/dL LAB CHEMISTRY METHOD 02/26/2025 10:41 AM [facility] BUN 12 5 - 25 mg/dL LAB CHEMISTRY METHOD 02/26/2025 10:41 AM [facility] Creatinine 0.54 0.50 - 1.10 mg/dL LAB CHEMISTRY METHOD 02/26/2025 10:41 AM [facility] eGFR 102 >=60 mL/min/1. 73m2 LAB CHEMISTRY METHOD 02/26/2025 10:41 AM [facility] Comment:Calculation based on the Chronic Kidney Disease Epidemiology Collaboration (CKD-EPI) equation refit without adjustment for race. BUN/Creatinine Ratio 22.2 LAB CHEMISTRY METHOD 02/26/2025 10:41 AM [facility] Calcium 9.2 8.5 - 10.5 mg/dL LAB CHEMISTRY METHOD 02/26/2025 10:41 AM [facility] AST (SGOT) 24 10 - 42 unit/L LAB CHEMISTRY METHOD 02/26/2025 10:41 AM EDT [facility] ALT (SGPT) 29 10 - 60 unit/L LAB CHEMISTRY METHOD 02/26/2025 10:41 AM EDT [facility] Alkaline Phosphatase 99 42 - 121 unit/L LAB CHEMISTRY METHOD 02/26/2025 10:41 AM EDT [facility] Total Protein 5.8(L) 6.0 - 8.0 g/dL LAB CHEMISTRY METHOD 02/26/2025 10:41 AM EDT [facility] Albumin 3.1(L) 3.2 - 5.0 g/dL LAB CHEMISTRY METHOD 02/26/2025 10:41 AM EDT [facility] Total Bilirubin 0.5 0.0 - 1.4 mg/dL LAB CHEMISTRY METHOD 02/26/2025 10:41 AM EDT [facility] Blood Venous blood specimen / Unknown Venipuncture / Unknown 02/26/2025 6:30 AM EDT 02/26/2025 9:21 AM EDT us Ruchi SALINAS LAB BLOOD ORDERABLES Final Re sult [facility] [address] [place] [address], documented in this encounter Visit Diagnoses Diagnosis Encounter for other general examination documented in this encounter Care Teams Training Analyst Relationship Specialty Start Date End Date Ruchi Zapata PA [address] [place] [phone] PCP - General Physician Laser Beam Color Scanner Operator 03/03/25 documented as of this encounter
== END 2025-07-10 14:26 | disposition home or self-care (01) ==
LOC: HO.MAMMO 14:25
PROVIDERS: PCP Internal Medicine; Visit Provider Internal Medicine
DX: Z12.31 Encounter for screening mammogram for malignant neoplasm of breast (principal)
CPT/HCPCS: 77063; 77067

== ENCOUNTER → 2025-07-10 14:30 | Outpatient (BNV) | payer MEDICARE, SELFPAY | PROVIDERS: PCP Internal Medicine; Visit Provider Internal Medicine | DX: Z12.31 Encounter for screening mammogram for malignant neoplasm of breast (principal) | CPT/HCPCS: 77063; 77067 ==